=== PATIENT | male | born 1970 | race Caucasian/White ===

== ENCOUNTER 2017-09-23 11:12 | Emergency (ER) ==
[2017-09-23 11:17] VITALS: BP 130/84; TEMP 97.6; BMI 24.0
--- NOTE | 2017-09-23 12:07 | CT ---
EXAM: CT abdomen pelvis without contrast HISTORY: Abdominal pain it after lifting injury. Patient reports mild blood in stool. There has be en a prior cholecystectomy. COMPARISON: None TECHNIQUE: Serial axial images of the abdomen pelvis were performed from the lung bases through the inferior pelvis without contrast. These were viewed in multiple planes. FINDINGS: The lung bases are clear. Evaluation is limited due to lack of contrast. The liver is unremarkable. The gallbladder has been resected. Adrenal glands are normal. Kidneys are normal. The spleen is unremarkable. Pancreas is unremarkable. The stomach is distended. Small bowel in the abdomen pelvis is unremarkable. The colon is unremarkable. The appendix is not v isualized with no secondary signs of appendicitis. Urinary bladder is partially distended. The pros ruiz is unremarkable. There is no free air or free fluid. There are few scattered mesenteric lymph nodes. The osseous structures are unremarkable. IMPRESSION: 1. A few scattered low mesenteric lymph nodes are nonpathologically enlarged may be reactive versus l ymphadenitis. 2. No additional abnormality is identified to account for patient's symptoms. 3. Prior cholecystectomy.
--- NOTE | 2017-09-23 12:37 | ED.PDOC ---
General ED Provider: Dr. TEDDY GONSALVES Chief Complaint: Abdominal Pain Stated Complaint: abdominal pain lower GI bleed Time Seen by Physician: 11:20 ( lifted a heavy object post event had pain and minor LOWER GI BLEED ) Mode of Arrival: Walk-In Information Source: Patient Exam Limitations: No limitations Primary Care Provider: FRANCIS BANDA Nursing and Triage Documentation Reviewed and Agree: Yes Reviewed sepsis parameters & appropriate labs ordered?: Yes System Inflammatory Response Syndrome: Not Applicable Sepsis Protocol: For patient's 13 years and over: Temp is 96.8 and below OR 101 and greater Pulse >90 BPM Resp >20/minute Acutely Altered Mental Status Are patient's symptoms suggestive of a new infection, such as: -Pneumonia -Skin, Soft Tissue -Endocarditis -UTI -Bone, Joint Infection -Implantable Device -Acute Abdominal Infection -Wound Infection -Meningitis -Blood Stream Catheter Infection -Unknown System Inflammatory Response Syndrome: Not Applicable GI Complaint Exam - Abdominal Pain Complaint/Exam Onset: Sudden Duration: 1 HR AGO AFTER LIFTING A HEAVY OBJECT AT WORK Symptoms Are: Resolved Timing: Intermittent Initial Severity: Mild Location of Pain: RLQ, LLQ Radiates To: Reports: LLQ, RLQ. Denies: Chest, Back, Flank Character: Reports: Aching (WITH SCANT BLOODY STOOL WHICH WAS LOOSE IN NATURE ) Aggravating: Reports: None Alleviating: Reports: Spontaneous resolution Associated Signs and Symptoms: Denies: Diaphoresis, Fever, Cough, Chest pain, Dizziness, Back pain, Constipation, Blood in stool, Dysuria, Urinary frequency, Decreased urine output, Decreased appetite, Discharge, Nausea, Vomiting, Diarrhea, Decreased activity Related History: Reports: Similar episode AAA Risk Factors: Reports: None Cardiac Risk Factors: Reports: None Testicular Torsion Risk Factors: Reports: None Surgical Obstruction Risk Factors: Reports: None Related Surgical History: Reports: None Abdominal Findings: Present: None Differential Diagnoses: Appendicitis, Bowel Obstruction, Constipation, Diverticulitis, Gastroenteritis Review of Systems - Review Of Systems Constitutional: Reports: No symptoms Eyes: Reports: No symptoms Ears, Nose, Mouth, Throat: Reports: No symptoms Respiratory: Reports: No symptoms Cardiac: Reports: No symptoms GI: Reports: Abdominal pain, Rectal bleeding : Reports: No symptoms Musculoskeletal: Reports: No symptoms Skin: Reports: No symptoms Neurological: Reports: No symptoms Endocrine: Reports: No symptoms Hematologic/Lymphatic: Reports: No symptoms All Other Systems: Reviewed and Negative Past Medical History - Past Medical History Previously Healthy: Yes Endocrine: Reports: None Cardiovascular: Reports: None Respiratory: Reports: None Hematological: Reports: None Gastrointestinal: Reports: None Genitourinary: Reports: None Neuro/Psych: Reports: None Musculoskeletal: Reports: None Cancer: Reports: None - Surgical History General Surgical History: Reports: None - Family History Family History: Reports: None - Social History Smoking Status: Never smoker Hx Substance Use: No Alcohol Screening: Occasionally Physical Exam - Physical Exam Appearance: Well-appearing, No pain distress, Well-nourished Eyes: TUCKER, EOMI, Conjunctiva clear ENT: Ears normal, Nose normal, Oropharynx normal Respiratory: Airway patent, Breath sounds clear, Breath sounds equal, Respirations nonlabored Cardiovascular: RRR, Pulses normal, No rub, No murmur GI/: Soft, Nontender, No masses, Bowel sounds normal, No Organomegaly Musculoskeletal: Normal strength, ROM intact, No edema, No calf tenderness Skin: Warm, Dry, Normal color Neurological: Sensation intact, Motor intact, Reflexes intact, Cranial nerves intact, Alert, Oriented Psychiatric: Affect appropriate, Mood appropriate Interpretation - Radiology Interpretation Radiology Interpretation By: Radiologist Radiology Results: No acute changes Critical Care Note - Critical Care Note Total Time (mins): 0 Course - Course Hematology/Chemistry: 09/23/17 11:50 09/23/17 11:50 Orders, Labs, Meds: Lab Review 09/23/17 09/23/17 09/23/17 11:50 11:50 11:50 WBC 8.99 RBC 4.08 L Hgb 12.8 L Hct 37.1 L MCV 90.9 MCH 31.4 H MCHC 34.5 RDW Coeff of Brian 13.7 Plt Count 270 Immature Gran % (Auto) 0.2 Neut % (Auto) 64.3 Lymph % (Auto) 25.1 [place] % (Auto) 8.8 Eos % (Auto) 0.8 Baso % (Auto) 0.8 Immature Gran # (Auto) 0.0 Neut # (Auto) 5.8 Lymph # (Auto) 2.3 [place] # (Auto) 0.8 Eos # (Auto) 0.1 Baso # (Auto) 0.1 PT 9.9 INR 0.99 APTT 24.7 Sodium 139 Potassium 3.9 Chloride 110 H Carbon Dioxide 24 Anion Gap 8.9 BUN 10 Creatinine 0.92 Estimated GFR (MDRD) 87.00 BUN/Creatinine Ratio 10.86 Glucose 100 Calcium 9.3 Total Bilirubin 1.0 AST 26 ALT 23 Alkaline Phosphatase 100 Total Protein 6.8 Albumin 3.8 Globulin 3.0 Albumin/Globulin Ratio 1.27 Orders Category Date Time Status CBC W/ AUTO DIFF Stat LAB 09/23/17 11:37 Ordered COMPREHENSIVE METABOLIC PANEL Stat LAB 09/23/17 11:37 Ordered PARTIAL THROMBOPLASTIN TIME Stat LAB 09/23/17 11:37 Ordered PT WITH INR Stat LAB 09/23/17 11:[address] ABDOMEN/PELVIS WO CONTRAST Stat RADS 09/23/17 11:37 Ordered Vital Signs: Temp Pulse Resp BP Pulse Ox 09/23/17 11:13 97.6 F 73 20 130/84 98 Departure - Departure Time of Disposition: 12:38 (PT IS 48 DISCUSSED COLOCSCOPY IN DETAIL) Disposition: HOME SELF-CARE Discharge Problem: Abdominal pain, Lower GI bleed Instructions: Rectal Bleeding (ED), Abdominal Pain (ED) Condition: Good Pt referred to PMD for follow-up: Yes IPMP verified?: No Additional Instructions: Please call your Family Physician as soon as possible to schedule a follow-up appointment.YOU MUST HAVE A COLONSCOPY SOON POSSIBLE Allergies/Adverse Reactions: Allergies No Known Allergies Allergy (Verified 09/23/17 11:17) Home Medications: Ambulatory Orders Multivit-Min/FA/Lycopen/Lutein [[place] Adults 50+ Tablet] 1 each PO DAILY 09/23 Disposition Discussed With: Patient
== END 2017-09-23 12:57 | disposition home or self-care (01) ==
LOC: ED 11:12
DX: R10.30 Lower abdominal pain, unspecified (principal); K92.1 Melena; X50.0XXA Overexertion from strenuous movement or load, initial encounter
CPT/HCPCS: 36415; 80053; 85025; 85610; 85730; 99283